=== PATIENT | male | born 1945 | race Caucasian/White ===

== ENCOUNTER 2019-03-12 20:00 | Emergency (ER) | payer OTHER ==
[~2019-03-12] VITALS: Ht 167.6 cm; Wt 75.7 kg
[2019-03-12] MEDS ORDERED: CLARITIN10 M1 (20:16)
[2019-03-12] MEDS ORDERED: MYSOLINE250 MG (20:16)
[2019-03-12] MEDS ORDERED: VITAMIN D10000 UNIT (20:16)
[2019-03-12] MEDS ORDERED: ATORVASTATIN CA20 MG (20:17)
[2019-03-12] MEDS ORDERED: LEVO-T75 MCG (20:17)
[2019-03-12] MEDS ORDERED: LISINOPRIL2.5 MG (20:18)
[2019-03-12] MEDS ORDERED: FOLIC ACID0.4 MG (20:18)
[2019-03-12] MEDS ORDERED: JANUVIA50 MG (20:19)
== END 2019-03-12 22:59 | disposition home or self-care (01) ==
LOC: ER 20:00
DX: R53.1 Weakness (principal); D69.49 Other primary thrombocytopenia; R10.2 Pelvic and perineal pain

== ENCOUNTER 2020-10-28 10:40 | Emergency (ER) | payer OTHER ==
[~2020-10-28] VITALS: Ht 167.6 cm; Wt 71.7 kg
[~2020-10-28 10:40] MED LIST: ATORVASTATIN CA20 MG; CLARITIN10 M1; FOLIC ACID0.4 MG; JANUVIA50 MG; LEVO-T75 MCG; LISINOPRIL2.5 MG; MYSOLINE250 MG; VITAMIN D10000 UNIT
[2020-10-28] MEDS ORDERED: GABAPENTIN300 M2 PO (11:00)
[2020-10-28] MEDS ORDERED: PANTOPRAZOLE SO40 MG PO (11:00)
[2020-10-28] MEDS ORDERED: INTESTINEX680 M1 PO (16:48)
[2020-10-28] MEDS ORDERED: CELEBREX100 MG PO (16:48)
[2020-10-28] MEDS ORDERED: CLINDAMYCIN HC300 MG PO (16:48)
== END 2020-10-28 16:53 | disposition home or self-care (01) ==
LOC: ER 10:40
DX: S62.603A Fracture of unspecified phalanx of left middle finger, initial encounter for closed fracture (principal); S61.223A Laceration with foreign body of left middle finger without damage to nail, initial encounter; S05.12XA Contusion of eyeball and orbital tissues, left eye, initial encounter; S70.02XA Contusion of left hip, initial encounter; M54.2 Cervicalgia; W01.198A Fall on same level from slipping, tripping and stumbling with subsequent striking against other object, initial encounter; Y93.89 Activity, other specified; Y92.22 Religious institution as the place of occurrence of the external cause; Y99.8 Other external cause status